=== PATIENT | female | born 1995 | race Asian ===

== ENCOUNTER 2019-11-10 11:27 | Observation (INO) | payer OTHER ==
[~2019-11-10] VITALS: Ht 152.4 cm; Wt 57.3 kg
[~2019-11-10 11:27] MED LIST: IBUP-1222 PO; NITR100C56 PO; OXYC-302 PO; POTA10TA11 PO; PREN1TAB60 PO
[2019-11-10] MEDS ORDERED: ASPI-515 PO (11:48)
[2019-11-10 11:53] VITALS: BP 144/111
[2019-11-10 12:13] LABS: MICROSCOPIC AUTO
[2019-11-10 12:21] LABS: CREATININE,URINE RANDOM 32.8 mg/dL
[2019-11-10 12:27] LABS: BASOPHILS # (AUTO) 0.04 x10^3/uL (0-0.1); BASOPHILS % (AUTO) 0 % (0-1); EOSINOPHILS # (AUTO) 0.18 x10^3/uL (0-0.4); EOSINOPHILS % (AUTO) 2 % (1-7); LYMPHOCYTES # (AUTO) 1.91 x10^3/uL (1-3.4); LYMPHOCYTES % (AUTO) 18 % (22-44); MD NO; MEAN CORPUSCULAR HEMOGLOBIN 30.7 pg (27.0-34.8); MEAN CORPUSCULAR HGB CONC 32.6 g/dL (32.4-35.8); MEAN CORPUSCULAR VOLUME 94.1 fL (80-100); MONOCYTES # (AUTO) 0.88 x10^3/uL (0.2-0.8); MONOCYTES % (AUTO) 8 % (2-9); NEUTROPHILS # (AUTO) 7.89 x10^3/uL (1.8-6.8); NEUTROPHILS % (AUTO) 72 % (42-75); PLATELET COUNT 224 x10^3/uL (130-400); RED BLOOD COUNT 4.32 x10^6/uL (3.82-5.3); RED CELL DISTRIBUTION WIDTH 14.5 % (9.6-15.2)
[2019-11-10 12:37] LABS: ALANINE AMINOTRANSFERASE 16 U/L (12-78); ALBUMIN 2.6 g/dL (3.4-5.0); ANION GAP 9 mmol/L (5-15); CALCIUM 8.8 mg/dL (8.5-10.1); CHLORIDE 110 mmol/L (98-107)
[2019-11-10 12:40] LABS: ALKALINE PHOSPHATASE 124 U/L (45-117); BILIRUBIN,TOTAL 0.2 mg/dL (0.2-1.0); TOTAL PROTEIN 6.8 g/dL (6.4-8.2)
[2019-11-10] MEDS ORDERED: BETAMETHASONE 6 MG/ML, 5ML IM ONE (13:06)
[2019-11-10] MEDS ORDERED: LABETALOL 100 MG TABLET ONE (13:06)
[2019-11-10] MEDS: LABETALOL 100 MG TABLET PO SCH (13:11)
[2019-11-10] MEDS: BETAMETHASONE 6 MG/ML, 5ML IM SCH (13:13)
[2019-11-11] MEDS ORDERED: LABETALOL 100 MG TABLET ONE (08:58)
[2019-11-11] MEDS: LABETALOL 100 MG TABLET PO SCH (09:01)
[2019-11-11] MEDS: BETAMETHASONE 6 MG/ML, 5ML IM SCH (12:58)
[2019-11-11] MEDS ORDERED: POTASSIUM CHLORIDE 20 MEQ TAB.ER.PRT PO ONE (13:00)
== END 2019-11-11 13:15 | disposition home or self-care (01) ==
LOC: LDOP 11:27 → INTOOBSV 12:55 → UNDOADMOB 12:55 → LDIP 12:55 → OBSVTOIN 12:55 → LDIP 13:44
PROVIDERS: ADMIT Obstetrics & Gynecology; ATTEND Obstetrics & Gynecology
DX: O13.3 Gestational [pregnancy-induced] hypertension without significant proteinuria, third trimester (principal); Z3A.34 34 weeks gestation of pregnancy; Z79.82 Long term (current) use of aspirin; Z79.899 Other long term (current) drug therapy; Z87.59 Personal history of other complications of pregnancy, childbirth and the puerperium
CPT/HCPCS: 36415; 59025; 80053; 81001; 82570; 84156; 84550; 85025; 87081; 87086; 96372; G0378; J0702

== ENCOUNTER 2019-11-16 15:57 | Inpatient (IN) | payer OTHER ==
[~2019-11-16] VITALS: Ht 152.4 cm; Wt 57.2 kg
[~2019-11-16 15:57] MED LIST changes: +ASPI-515 PO; +METHYLERGONOVINE 0.2 MG/ML IM ONE
[2019-11-16] MEDS ORDERED: SODIUM CITRATE/CITRIC ACID 30 ML UDC PO ONE (16:00)
[2019-11-16] MEDS ORDERED: LACTATED RINGERS 1,000 ML IVBOLUS ONE (16:00)
[2019-11-16] MEDS ORDERED: LACTATED RINGERS 1,000 ML IV SCH ×2 (16:00→22:17)
[2019-11-16] MEDS ORDERED: METOCLOPRAMIDE 5 MG/ML, 2ML IV ONE (16:00)
[2019-11-16] MEDS ORDERED: SODIUM CITRATE/CITRIC ACID 30 ML UDC ONE (16:06)
[2019-11-16] MEDS ORDERED: METOCLOPRAMIDE 5 MG/ML, 2ML ONE (16:06)
[2019-11-16] MEDS ORDERED: OXYTOCIN 30U/ 0.9% NaCL 500ML 500 ML ONE (16:06)
[2019-11-16] MEDS ORDERED: NEWBORN KIT ONE (16:06)
[2019-11-16 16:35] LABS: BASOPHILS # (AUTO) 0.04 x10^3/uL (0-0.1); BASOPHILS % (AUTO) 0 % (0-1); EOSINOPHILS # (AUTO) 0.19 x10^3/uL (0-0.4); EOSINOPHILS % (AUTO) 2 % (1-7); LYMPHOCYTES % (AUTO) 16 % (22-44); MD NO; MEAN CORPUSCULAR HEMOGLOBIN 30.7 pg (27.0-34.8); MEAN CORPUSCULAR HGB CONC 32.7 g/dL (32.4-35.8); MEAN PLATELET VOLUME 8.4 fL (7.4-10.4); MONOCYTES # (AUTO) 0.98 x10^3/uL (0.2-0.8); MONOCYTES % (AUTO) 8 % (2-9); NEUTROPHILS # (AUTO) 9.46 x10^3/uL (1.8-6.8); NEUTROPHILS % (AUTO) 74 % (42-75); PLATELET COUNT 234 x10^3/uL (130-400); RED BLOOD COUNT 4.43 x10^6/uL (3.82-5.3); RED CELL DISTRIBUTION WIDTH 14.5 % (9.6-15.2)
[2019-11-16 16:37] VITALS: BP 134/94
[2019-11-16 16:37] LABS: MICROSCOPIC AUTO
[2019-11-16 16:38] LABS: ALANINE AMINOTRANSFERASE 19 U/L (12-78); ALBUMIN 2.4 g/dL (3.4-5.0); ANION GAP 10 mmol/L (5-15); CALCIUM 8.1 mg/dL (8.5-10.1); CHLORIDE 110 mmol/L (98-107); CREATININE 0.59 mg/dL (0.55-1.02)
[2019-11-16 16:40] LABS: ALKALINE PHOSPHATASE 125 U/L (45-117); BILIRUBIN,TOTAL 0.2 mg/dL (0.2-1.0); TOTAL PROTEIN 6.6 g/dL (6.4-8.2)
[2019-11-16 16:47] LABS: CREATININE,URINE RANDOM 40.8 mg/dL
[2019-11-16] MEDS: POTASSIUM CHLORIDE 40 MEQ in SODIUM CHLORIDE 0.45% 500 ML IV SCH ×2 (18:12→22:10)
[2019-11-16] MEDS ORDERED: CEFAZOLIN 1,000 MG ONE (19:43)
[2019-11-16] MEDS ORDERED: ONDANSETRON 2MG/ML, 2ML ONE (19:43)
[2019-11-16] MEDS ORDERED: OXYTOCIN 10 UNITS/ML, 1ML ONE (19:43)
[2019-11-16] MEDS ORDERED: FENTANYL PF 100 MCG/2ML ONE (19:44)
[2019-11-16] MEDS ORDERED: HYDROmorphone 2 MG/ML, 1ML ONE (19:44)
[2019-11-16] MEDS ORDERED: SODIUM CHLORIDE 0.9% PF 10ML ONE ×2 (19:45)
[2019-11-16] MEDS ORDERED: KETOROLAC 30 MG/1 ML ONE (19:50)
[2019-11-16] MEDS ORDERED: MISOPROSTOL 200 MCG TABLET ONE (20:41)
[2019-11-16] MEDS ORDERED: DIPHENHYDRAMINE 50 MG/ML, 1ML ONE (21:13)
[2019-11-16] MEDS ORDERED: TRANEXAMIC ACID 100 MG/ML, 10ML ONE (21:22)
[2019-11-16] MEDS ORDERED: ALBUTEROL SULFATE 2.5 MG/3 ML ONE (21:23)
[2019-11-16 21:58] LABS: ALANINE AMINOTRANSFERASE 15 U/L (12-78); ALBUMIN 2.3 g/dL (3.4-5.0); ANION GAP 11 mmol/L (5-15); CALCIUM 8.3 mg/dL (8.5-10.1); CHLORIDE 113 mmol/L (98-107); CREATININE 0.59 mg/dL (0.55-1.02)
[2019-11-16 21:59] LABS: INTERNATIONAL NORMALIZED RATIO 0.92 (0.93-1.1); PROTHROMBIN TIME 9.7 Seconds (9.6-11.5)
[2019-11-16 22:01] LABS: ALKALINE PHOSPHATASE 118 U/L (45-117); BILIRUBIN,TOTAL 0.3 mg/dL (0.2-1.0); TOTAL PROTEIN 6.4 g/dL (6.4-8.2)
[2019-11-16 22:17] LABS: BASOPHILS # (AUTO) 0.05 x10^3/uL (0-0.1); BASOPHILS % (AUTO) 0 % (0-1); EOSINOPHILS # (AUTO) 0.15 x10^3/uL (0-0.4); EOSINOPHILS % (AUTO) 1 % (1-7); LYMPHOCYTES # (AUTO) 2.83 x10^3/uL (1-3.4); LYMPHOCYTES % (AUTO) 20 % (22-44); MD SCAN; MEAN CORPUSCULAR HEMOGLOBIN 31.1 pg (27.0-34.8); MEAN CORPUSCULAR HGB CONC 33.5 g/dL (32.4-35.8); MEAN PLATELET VOLUME 8.2 fL (7.4-10.4); MONOCYTES # (AUTO) 0.89 x10^3/uL (0.2-0.8); MONOCYTES % (AUTO) 6 % (2-9); NEUTROPHILS % (AUTO) 72 % (42-75); PLATELET COUNT 185 x10^3/uL (130-400); RED BLOOD COUNT 4.23 x10^6/uL (3.82-5.3); RED CELL DISTRIBUTION WIDTH 14.7 % (9.6-15.2)
[2019-11-16] MEDS ORDERED: OXYTOCIN 30U/ 0.9% NaCL 500ML 500 ML IV SCH (22:17)
[2019-11-16 22:18] VITALS: BP 136/72
[2019-11-16] MEDS ORDERED: morphine SULFATE 10 MG/ML, 1ML IVPush PRN (22:30)
[2019-11-16] MEDS ORDERED: MORPHINE SULFATE 4 MG/ML, 1ML IVPush PRN (22:30)
[2019-11-16] MEDS ORDERED: METHYLERGONOVINE 0.2 MG/ML IM PRN (22:30)
[2019-11-16] MEDS ORDERED: DIPHENHYDRAMINE 50 MG/ML, 1ML IVPush ONE (22:30)
[2019-11-16] MEDS ORDERED: CARBOPROST TROMETHAMINE 250 MCG/ML, 1ML IM PRN (22:30)
[2019-11-16] MEDS ORDERED: TRANEXAMIC ACID 100 MG/ML, 10ML IV ONE (22:30)
[2019-11-16] MEDS ORDERED: ONDANSETRON 2MG/ML, 2ML IV PRN (22:30)
[2019-11-16] MEDS ORDERED: SIMETHICONE 80 MG CHEW TAB PO PRN (22:30)
[2019-11-16] MEDS ORDERED: MISOPROSTOL 200 MCG TABLET PR PRN (22:30)
[2019-11-16 22:35] VITALS: BP 151/100
[2019-11-16] MEDS ORDERED: OXYcodone 5 MG/5 ML ORAL.SOL UDC PO PRN (23:00)
[2019-11-16 23:18] VITALS: BP 138/95
[2019-11-17] VITALS (12 sets, daily range): BP systolic 105–170; BP diastolic 64–95
[2019-11-17] MEDS ORDERED: OXYcodone 5 MG/5 ML ORAL.SOL UDC ONE (00:11)
[2019-11-17] MEDS ORDERED: PROPOFOL 10 MG/ML, 20ML ONE (00:28)
[2019-11-17] MEDS ORDERED: ONDANSETRON 2MG/ML, 2ML ONE (00:28)
[2019-11-17] MEDS ORDERED: FENTANYL PF 250 MCG/5ML ONE (00:28)
[2019-11-17] MEDS ORDERED: ROCURONIUM 10MG/ML,5ML ONE (00:28)
[2019-11-17] MEDS ORDERED: PHENYLEPHRINE 10 MG/ML ONE (00:29)
[2019-11-17] MEDS ORDERED: SUGAMMADEX 200 MG/2 ML IVPush ONE (01:38)
[2019-11-17 01:53] LABS: MEAN CORPUSCULAR HEMOGLOBIN 30.4 pg (27.0-34.8); MEAN CORPUSCULAR HGB CONC 33.3 g/dL (32.4-35.8)
[2019-11-17] MEDS ORDERED: FENTANYL PF 100 MCG/2ML ONE (01:56)
[2019-11-17 02:05] LABS: INTERNATIONAL NORMALIZED RATIO 1.52 (0.93-1.1); PROTHROMBIN TIME 16.2 Seconds (9.6-11.5)
[2019-11-17 02:27] LABS: BASOPHILS # (AUTO) 0.04 x10^3/uL (0-0.1); BASOPHILS % (AUTO) 0 % (0-1); EOSINOPHILS # (AUTO) 0.09 x10^3/uL (0-0.4); EOSINOPHILS % (AUTO) 1 % (1-7); LYMPHOCYTES # (AUTO) 1.39 x10^3/uL (1-3.4); LYMPHOCYTES % (AUTO) 12 % (22-44); MD SCAN; MEAN PLATELET VOLUME 6.8 fL (7.4-10.4); MONOCYTES # (AUTO) 1.16 x10^3/uL (0.2-0.8); MONOCYTES % (AUTO) 10 % (2-9); NEUTROPHILS # (AUTO) 9.33 x10^3/uL (1.8-6.8); NEUTROPHILS % (AUTO) 78 % (42-75); PLATELET COUNT 65 x10^3/uL (130-400)
[2019-11-17] MEDS ORDERED: TRANEXAMIC ACID 1,000 MG in SODIUM CHLORIDE 0.9% 100 ML IV ONE (02:30)
[2019-11-17] MEDS ORDERED: LABETALOL 5MG/ML, 20ML ONE (02:39)
[2019-11-17] MEDS ORDERED: LABETALOL 5MG/ML, 20ML IVPush PRN ×3 (03:00)
[2019-11-17] MEDS ORDERED: hydrALAzine 20 MG/ML, 1ML IVPush ONE (03:00)
[2019-11-17] MEDS: CEFAZOLIN PMX 1GM/50ML 50 ML IV SCH ×3 (03:35→20:30)
[2019-11-17] MEDS ORDERED: IBUPROFEN 600 MG TABLET ONE (04:36)
[2019-11-17] MEDS ORDERED: OXYcodone/APAP 5/325MG TABLET ONE ×4 (04:36→16:59)
[2019-11-17] MEDS: OXYcodone/APAP 5/325MG TABLET PO PRN ×4 (04:46→17:01)
[2019-11-17] MEDS: IBUPROFEN 600 MG TABLET PO PRN (04:47)
[2019-11-17 04:53] LABS: MEAN CORPUSCULAR HEMOGLOBIN 30.6 pg (27.0-34.8); MEAN CORPUSCULAR HGB CONC 33.1 g/dL (32.4-35.8); MEAN PLATELET VOLUME 7.2 fL (7.4-10.4); PLATELET COUNT 61 x10^3/uL (130-400); RED BLOOD COUNT 2.46 x10^6/uL (3.82-5.3); RED CELL DISTRIBUTION WIDTH 15.2 % (9.6-15.2)
[2019-11-17 05:01] LABS: INTERNATIONAL NORMALIZED RATIO 1.12 (0.93-1.1); PROTHROMBIN TIME 11.9 Seconds (9.6-11.5)
[2019-11-17] MEDS: LACTATED RINGERS 1,000 ML IV SCH ×2 (05:36→08:23)
[2019-11-17 05:56] LABS: BASOPHILS # (AUTO) 0.02 x10^3/uL (0-0.1); BASOPHILS % (AUTO) 0 % (0-1); EOSINOPHILS # (AUTO) 0.04 x10^3/uL (0-0.4); EOSINOPHILS % (AUTO) 0 % (1-7); LYMPHOCYTES # (AUTO) 1.87 x10^3/uL (1-3.4); LYMPHOCYTES % (AUTO) 14 % (22-44); MD SCAN; MONOCYTES # (AUTO) 0.89 x10^3/uL (0.2-0.8); MONOCYTES % (AUTO) 7 % (2-9); NEUTROPHILS # (AUTO) 10.86 x10^3/uL (1.8-6.8); NEUTROPHILS % (AUTO) 79 % (42-75)
[2019-11-17] MEDS ORDERED: DOCUSATE 100 MG CAPSULE ONE (09:03)
[2019-11-17] MEDS ORDERED: PRENATAL VIT/IRON/FA 1 EACH TABLET ONE (09:03)
[2019-11-17] MEDS: PRENATAL VIT/IRON/FA 1 EACH TABLET PO SCH (09:11)
[2019-11-17 11:15] LABS: INTERNATIONAL NORMALIZED RATIO 0.99 (0.93-1.1); PROTHROMBIN TIME 10.5 Seconds (9.6-11.5)
[2019-11-17 11:33] LABS: MEAN CORPUSCULAR HEMOGLOBIN 30.7 pg (27.0-34.8); MEAN CORPUSCULAR HGB CONC 33.4 g/dL (32.4-35.8); RED BLOOD COUNT 2.35 x10^6/uL (3.82-5.3); RED CELL DISTRIBUTION WIDTH 14.4 % (9.6-15.2)
[2019-11-17 11:40] LABS: MD YES; PLATELET COUNT 62 x10^3/uL (130-400)
[2019-11-17 11:41] LABS: BAND#(MANUAL) 2.18 x10^3/uL; BANDS%(MANUAL) 14 % (0-7); LYMPH#(MANUAL) 2.34 x10^3/uL (1-3.4); LYMPHS% (MANUAL) 15 % (22-44); METAMYELOCYTES# (MANUAL) 0.16 x10^3/uL (0-0); METAMYELOCYTES% (MANUAL) 1 % (0-1); MONOS#(MANUAL) 0.78 x10^3/uL (0.3-2.7); MONOS% (MANUAL) 5 % (2-9); SEG#(MANUAL) 10.14 x10^3/uL (1.8-6.8); SEGS% (MANUAL) 65 % (42-75)
[2019-11-17 11:42] LABS: <PLATELET ESTIMATE> DECREASED; <PLT MORPHOLOGY> NORMAL PLT MORPH; POLYCHROMASIA 1+
[2019-11-17 16:14] LABS: ALANINE AMINOTRANSFERASE 15 U/L (12-78); ALBUMIN 1.4 g/dL (3.4-5.0); ANION GAP 9 mmol/L (5-15); CALCIUM 6.9 mg/dL (8.5-10.1); CHLORIDE 108 mmol/L (98-107); CREATININE 0.73 mg/dL (0.55-1.02)
[2019-11-17 16:15] LABS: MEAN CORPUSCULAR HEMOGLOBIN 30.3 pg (27.0-34.8); MEAN PLATELET VOLUME 8.1 fL (7.4-10.4); NEUTROPHILS % (AUTO) 77 % (42-75); PLATELET COUNT 81 x10^3/uL (130-400); RED BLOOD COUNT 2.21 x10^6/uL (3.82-5.3); RED CELL DISTRIBUTION WIDTH 14.9 % (9.6-15.2)
[2019-11-17 16:16] LABS: ALKALINE PHOSPHATASE 48 U/L (45-117); BILIRUBIN,TOTAL 0.5 mg/dL (0.2-1.0); TOTAL PROTEIN 3.8 g/dL (6.4-8.2)
[2019-11-17 17:33] LABS: BASOPHILS # (AUTO) 0.02 x10^3/uL (0-0.1); BASOPHILS % (AUTO) 0 % (0-1); EOSINOPHILS # (AUTO) 0.13 x10^3/uL (0-0.4); EOSINOPHILS % (AUTO) 1 % (1-7); LYMPHOCYTES # (AUTO) 2.21 x10^3/uL (1-3.4); LYMPHOCYTES % (AUTO) 15 % (22-44); MD SCAN; MONOCYTES # (AUTO) 1.16 x10^3/uL (0.2-0.8); MONOCYTES % (AUTO) 8 % (2-9); NEUTROPHILS # (AUTO) 11.67 x10^3/uL (1.8-6.8)
[2019-11-17 18:07] LABS: MICROSCOPIC INDICATED
[2019-11-17] MEDS ORDERED: GENTAMICIN PER PHARMACY MC PRN (18:30)
[2019-11-17] MEDS ORDERED: OMNIPAQUE 350 MG/ML, 100ML BOTTLE ONE (18:33)
[2019-11-17] MEDS ORDERED: CLINDAMYCIN PMX 900MG/50ML 50 ML ONE (18:46)
[2019-11-17] MEDS ORDERED: PHARMACOKINETIC MONITORING MC PRN (19:00)
[2019-11-17] MEDS: CLINDAMYCIN PMX 900MG/50ML 50 ML IV SCH (19:00)
[2019-11-17] MEDS ORDERED: PHARMACOKINETIC CONSULTATION MC ONE (19:00)
[2019-11-17] MEDS ORDERED: GENTAMICIN 120 MG in SODIUM CHLORIDE 0.9% 50 ML IV ONE (19:30)
[2019-11-17] MEDS: D5%-LACTATED RINGERS 1,000 ML IV SCH (20:15)
[2019-11-17 21:08] LABS: MEAN CORPUSCULAR HEMOGLOBIN 31.1 pg (27.0-34.8); MEAN CORPUSCULAR HGB CONC 34.7 g/dL (32.4-35.8); MEAN PLATELET VOLUME 8.3 fL (7.4-10.4); PLATELET COUNT 69 x10^3/uL (130-400); RED BLOOD COUNT 2.12 x10^6/uL (3.82-5.3); RED CELL DISTRIBUTION WIDTH 14.6 % (9.6-15.2)
[2019-11-17 21:33] LABS: BASOPHILS # (AUTO) 0.03 x10^3/uL (0-0.1); BASOPHILS % (AUTO) 0 % (0-1); EOSINOPHILS # (AUTO) 0.18 x10^3/uL (0-0.4); EOSINOPHILS % (AUTO) 1 % (1-7); LYMPHOCYTES # (AUTO) 2.21 x10^3/uL (1-3.4); LYMPHOCYTES % (AUTO) 17 % (22-44); MD SCAN; MONOCYTES # (AUTO) 1.09 x10^3/uL (0.2-0.8); MONOCYTES % (AUTO) 8 % (2-9); NEUTROPHILS # (AUTO) 9.59 x10^3/uL (1.8-6.8); NEUTROPHILS % (AUTO) 73 % (42-75)
[2019-11-18] MEDS ORDERED: MORPHINE SULFATE 4 MG/ML, 1ML ONE (00:55)
[2019-11-18] MEDS ORDERED: CLINDAMYCIN PMX 900MG/50ML 50 ML ONE ×3 (02:56→18:44)
[2019-11-18] MEDS: CLINDAMYCIN PMX 900MG/50ML 50 ML IV SCH ×3 (03:00→18:46)
[2019-11-18] MEDS: SODIUM CHLORIDE 0.9% IV SCH ×3 (03:35→20:30)
[2019-11-18] MEDS: GENTAMICIN IV SCH ×3 (03:35→20:30)
[2019-11-18] MEDS: CEFAZOLIN PMX 1GM/50ML 50 ML IV SCH ×3 (04:10→21:10)
[2019-11-18 05:07] LABS: MEAN CORPUSCULAR HEMOGLOBIN 30.1 pg (27.0-34.8); MEAN CORPUSCULAR HGB CONC 33.8 g/dL (32.4-35.8); MEAN PLATELET VOLUME 7.6 fL (7.4-10.4); PLATELET COUNT 66 x10^3/uL (130-400); RED BLOOD COUNT 3.02 x10^6/uL (3.82-5.3); RED CELL DISTRIBUTION WIDTH 13.8 % (9.6-15.2)
[2019-11-18 05:12] LABS: ALBUMIN 1.4 g/dL (3.4-5.0); ANION GAP 7 mmol/L (5-15); CALCIUM 6.8 mg/dL (8.5-10.1); CHLORIDE 110 mmol/L (98-107)
[2019-11-18 05:17] LABS: ALANINE AMINOTRANSFERASE 14 U/L (12-78); ALKALINE PHOSPHATASE 47 U/L (45-117); BILIRUBIN,TOTAL 0.7 mg/dL (0.2-1.0); CREATININE 0.65 mg/dL (0.55-1.02); TOTAL PROTEIN 3.8 g/dL (6.4-8.2)
[2019-11-18 05:42] LABS: BASOPHILS # (AUTO) 0.01 x10^3/uL (0-0.1); BASOPHILS % (AUTO) 0 % (0-1); EOSINOPHILS # (AUTO) 0.23 x10^3/uL (0-0.4); EOSINOPHILS % (AUTO) 2 % (1-7); LYMPHOCYTES # (AUTO) 1.98 x10^3/uL (1-3.4); LYMPHOCYTES % (AUTO) 15 % (22-44); MD SCAN; MONOCYTES # (AUTO) 1.46 x10^3/uL (0.2-0.8); MONOCYTES % (AUTO) 11 % (2-9); NEUTROPHILS # (AUTO) 9.58 x10^3/uL (1.8-6.8); NEUTROPHILS % (AUTO) 72 % (42-75)
[2019-11-18] MEDS ORDERED: POTASSIUM CHLORIDE IV ONE (06:00)
[2019-11-18] MEDS ORDERED: DEXTROSE 5% IV ONE (06:00)
[2019-11-18] MEDS ORDERED: MAGNESIUM SULFATE/D5W 100 ML IV ONE (07:00)
[2019-11-18] MEDS ORDERED: OXYcodone/APAP 5/325MG TABLET ONE ×2 (08:05→18:44)
[2019-11-18] MEDS: OXYcodone/APAP 5/325MG TABLET PO PRN ×2 (08:09→18:46)
[2019-11-18 08:15] VITALS: BP 118/82
[2019-11-18] MEDS: PRENATAL VIT/IRON/FA 1 EACH TABLET PO SCH (09:00)
[2019-11-18] MEDS ORDERED: morphine SULFATE 10 MG/ML, 1ML ONE (11:45)
[2019-11-18 14:07] VITALS: BP 127/84
[2019-11-18] MEDS ORDERED: D5%-0.45NACL+KCL 30MEQ 1,000 ML IV SCH (14:30)
[2019-11-18] MEDS: D5%-LACTATED RINGERS 1,000 ML IV SCH (15:10)
[2019-11-18 19:15] VITALS: BP 130/89
[2019-11-18] MEDS: DOCUSATE 100 MG CAPSULE PO PRN (20:30)
[2019-11-18] MEDS: IBUPROFEN 600 MG TABLET PO PRN (20:33)
[2019-11-18] MEDS: POTASSIUM CHLORIDE 20 MEQ PACKET PO SCH (21:30)
[2019-11-19] MEDS ORDERED: OXYcodone/APAP 5/325MG TABLET ONE (00:03)
[2019-11-19 00:09] VITALS: BP 123/86
[2019-11-19] MEDS ORDERED: IBUPROFEN 600 MG TABLET ONE (02:46)
[2019-11-19] MEDS ORDERED: CLINDAMYCIN PMX 900MG/50ML 50 ML ONE (02:48)
[2019-11-19] MEDS: IBUPROFEN 600 MG TABLET PO PRN ×3 (02:51→14:40)
[2019-11-19] MEDS: CLINDAMYCIN PMX 900MG/50ML 50 ML IV SCH ×3 (02:51→19:33)
[2019-11-19 03:03] VITALS: BP 122/79
[2019-11-19] MEDS: SODIUM CHLORIDE 0.9% IV SCH ×3 (03:46→21:15)
[2019-11-19] MEDS: GENTAMICIN IV SCH ×3 (03:46→21:15)
[2019-11-19] MEDS: CEFAZOLIN PMX 1GM/50ML 50 ML IV SCH ×3 (04:25→22:34)
[2019-11-19] MEDS: SODIUM CHLORIDE FLUSH 3ML SYRINGE IVF SCH ×2 (05:14→21:15)
[2019-11-19 06:06] LABS: MEAN CORPUSCULAR HEMOGLOBIN 30.5 pg (27.0-34.8); MEAN CORPUSCULAR HGB CONC 34.1 g/dL (32.4-35.8); MEAN PLATELET VOLUME 7.8 fL (7.4-10.4); PLATELET COUNT 88 x10^3/uL (130-400); RED CELL DISTRIBUTION WIDTH 15.2 % (9.6-15.2)
[2019-11-19 06:08] LABS: ALBUMIN 1.6 g/dL (3.4-5.0); ANION GAP 8 mmol/L (5-15); CALCIUM 7.8 mg/dL (8.5-10.1); CHLORIDE 111 mmol/L (98-107)
[2019-11-19 06:12] LABS: ALANINE AMINOTRANSFERASE 11 U/L (12-78); ALKALINE PHOSPHATASE 53 U/L (45-117); BILIRUBIN,TOTAL 0.5 mg/dL (0.2-1.0); CREATININE 0.43 mg/dL (0.55-1.02); TOTAL PROTEIN 4.8 g/dL (6.4-8.2)
[2019-11-19 06:38] LABS: BASOPHILS # (AUTO) 0.05 x10^3/uL (0-0.1); BASOPHILS % (AUTO) 0 % (0-1); EOSINOPHILS # (AUTO) 0.37 x10^3/uL (0-0.4); EOSINOPHILS % (AUTO) 2 % (1-7); LYMPHOCYTES # (AUTO) 2.01 x10^3/uL (1-3.4); LYMPHOCYTES % (AUTO) 13 % (22-44); MD SCAN; MONOCYTES # (AUTO) 1.77 x10^3/uL (0.2-0.8); MONOCYTES % (AUTO) 11 % (2-9); NEUTROPHILS # (AUTO) 11.71 x10^3/uL (1.8-6.8); NEUTROPHILS % (AUTO) 74 % (42-75)
[2019-11-19 08:30] VITALS: BP 123/78
[2019-11-19] MEDS: PRENATAL VIT/IRON/FA 1 EACH TABLET PO SCH (10:14)
[2019-11-19] MEDS: DOCUSATE 100 MG CAPSULE PO PRN (10:14)
[2019-11-19 13:13] VITALS: BP 123/84
[2019-11-19] MEDS: FERROUS GLUCONATE 324 MG TABLET PO SCH (17:03)
[2019-11-19] MEDS: POTASSIUM CHLORIDE 20 MEQ PACKET PO SCH (17:03)
[2019-11-19 17:06] VITALS: BP 135/89
[2019-11-19 19:40] VITALS: BP 136/91
[2019-11-20 00:11] VITALS: BP 134/86
[2019-11-20] MEDS: CLINDAMYCIN PMX 900MG/50ML 50 ML IV SCH ×2 (03:36→11:49)
[2019-11-20 03:39] VITALS: BP 128/88
[2019-11-20] MEDS: SODIUM CHLORIDE 0.9% IV SCH ×2 (04:40→13:02)
[2019-11-20] MEDS: GENTAMICIN IV SCH ×2 (04:40→13:02)
[2019-11-20] MEDS: CEFAZOLIN PMX 1GM/50ML 50 ML IV SCH ×2 (05:23→13:30)
[2019-11-20 05:58] LABS: MEAN CORPUSCULAR HEMOGLOBIN 29.8 pg (27.0-34.8); MEAN CORPUSCULAR HGB CONC 32.7 g/dL (32.4-35.8); MEAN PLATELET VOLUME 7.8 fL (7.4-10.4); PLATELET COUNT 148 x10^3/uL (130-400); RED BLOOD COUNT 2.89 x10^6/uL (3.82-5.3); RED CELL DISTRIBUTION WIDTH 14.6 % (9.6-15.2)
[2019-11-20 07:03] LABS: BASOPHILS # (AUTO) 0.02 x10^3/uL (0-0.1); BASOPHILS % (AUTO) 0 % (0-1); EOSINOPHILS # (AUTO) 0.39 x10^3/uL (0-0.4); EOSINOPHILS % (AUTO) 3 % (1-7); LYMPHOCYTES % (AUTO) 14 % (22-44); MD SCAN; MONOCYTES # (AUTO) 1.06 x10^3/uL (0.2-0.8); MONOCYTES % (AUTO) 8 % (2-9); NEUTROPHILS # (AUTO) 10.43 x10^3/uL (1.8-6.8); NEUTROPHILS % (AUTO) 75 % (42-75)
[2019-11-20] MEDS ORDERED: POTASSIUM CHLORIDE 20 MEQ PACKET PO SCH (07:30)
[2019-11-20] MEDS: IBUPROFEN 600 MG TABLET PO PRN (07:34)
[2019-11-20] MEDS: PRENATAL VIT/IRON/FA 1 EACH TABLET PO SCH (07:34)
[2019-11-20] MEDS: DOCUSATE 100 MG CAPSULE PO PRN (07:34)
[2019-11-20] MEDS: FERROUS GLUCONATE 324 MG TABLET PO SCH ×2 (07:34→13:02)
[2019-11-20] MEDS: OXYcodone/APAP 5/325MG TABLET PO PRN (07:35)
[2019-11-20 07:45] VITALS: BP 143/94
[2019-11-20] MEDS: SODIUM CHLORIDE FLUSH 3ML SYRINGE IVF SCH ×2 (09:00→12:30)
[2019-11-20 11:55] VITALS: BP 134/93
[2019-11-20] MEDS ORDERED: SENN-92 PO ×3 (13:21→13:23)
[2019-11-20] MEDS ORDERED: IBUP-1222 PO ×3 (13:21→13:23)
[2019-11-20] MEDS ORDERED: OXYC-302 PO ×3 (13:21→13:23)
[2019-11-20] MEDS ORDERED: FERR325T5 PO ×3 (13:21→13:23)
[2019-11-20] MEDS ORDERED: POTA20TA6 PO (13:24)
[2019-11-20] MEDS ORDERED: SIME80TA16 PO (13:26)
== END 2019-11-20 14:15 | disposition home or self-care (01) | DRG 784 ==
LOC: LDIP 15:57 → 2NE 11-17 04:28 → 2NW 11-19 05:41
PROVIDERS: ADMIT Obstetrics & Gynecology; ATTEND Obstetrics & Gynecology
PROC: 10D00Z1 Extraction of Products of Conception, Low, Open Approach (ICD-10-PCS; 2019-11-16)
PROC: 0W3R0ZZ Control Bleeding in Genitourinary Tract, Open Approach (ICD-10-PCS; 2019-11-16)
PROC: 0UB70ZZ Excision of Bilateral Fallopian Tubes, Open Approach (ICD-10-PCS; principal; 2019-11-17)
PROC: 0UT90ZZ Resection of Uterus, Open Approach (ICD-10-PCS; 2019-11-17)
PROC: 30233K1 Transfusion of Nonautologous Frozen Plasma into Peripheral Vein, Percutaneous Approach (ICD-10-PCS; 2019-11-17)
PROC: 30233N1 Transfusion of Nonautologous Red Blood Cells into Peripheral Vein, Percutaneous Approach (ICD-10-PCS; 2019-11-17)
PROC: 30233M1 Transfusion of Nonautologous Plasma Cryoprecipitate into Peripheral Vein, Percutaneous Approach (ICD-10-PCS; 2019-11-17)
DX: O34.211 Maternal care for low transverse scar from previous cesarean delivery (principal); O72.1 Other immediate postpartum hemorrhage; D62 Acute posthemorrhagic anemia; O14.14 Severe pre-eclampsia complicating childbirth; E87.6 Hypokalemia; O99.284 Endocrine, nutritional and metabolic diseases complicating childbirth; Z30.2 Encounter for sterilization; Z37.0 Single live birth; Z79.82 Long term (current) use of aspirin; O62.0 Primary inadequate contractions; Z3A.38 38 weeks gestation of pregnancy
CPT/HCPCS: 36415; 74018; J7121; 71045; 74174; 80053; 80170; 81001; 82570; 82803; 83605; 83735; 84132; 84156; 84550; 85025; 85384; 85610; 85730; 86592; 86850; 86900; 86923; 87040; 87086; 88302; 88307; G0378; J0690; J1170; J1885; J2405; J2704; J3010; J3480; Q9967; J1200; J1580; J2210; J2270; J2370; J2590; J2765; J7060; J7120; P9012; P9016; P9017

== ENCOUNTER 2020-08-28 17:19 | Emergency (ER) | payer BC, OTHER ==
[~2020-08-28] VITALS: Ht 152.4 cm; Wt 50.8 kg
[~2020-08-28 17:19] MED LIST changes: -ASPI-515 PO; +ASPI-963 PO; +FERR325T5 PO; -METHYLERGONOVINE 0.2 MG/ML IM ONE; -OXYC-302 PO; +OXYC1TAB14 PO; +POTA20TA6 PO; +SENN-92 PO; +SIME80TA16 PO
--- NOTE | 2020-08-28 18:24 | NUR ---
Report received from meal break RN and care assumed. 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
[2020-08-28] MEDS ORDERED: LABETALOL 5MG/ML, 20ML ONE (18:29)
[2020-08-28] MEDS ORDERED: SODIUM CHLORIDE FLUSH 10ML SYR IVF ONE (18:30)
[2020-08-28] MEDS ORDERED: LABETALOL 5MG/ML, 20ML IVPush ONE (18:30)
[2020-08-28 18:35] LABS: BASOPHILS % (AUTO) 1 % (0-1); EOSINOPHILS % (AUTO) 2 % (1-7); LYMPHOCYTES % (AUTO) 23 % (22-44); MEAN CORPUSCULAR HEMOGLOBIN 30.2 pg (27.0-34.8); MEAN CORPUSCULAR HGB CONC 34.1 g/dL (32.4-35.8); MEAN PLATELET VOLUME 7.5 fL (7.4-10.4); MONOCYTES % (AUTO) 4 % (2-9); NEUTROPHILS % (AUTO) 70 % (42-75); PLATELET COUNT 262 x10^3/uL (130-400); RED BLOOD COUNT 5.13 x10^6/uL (3.82-5.3); RED CELL DISTRIBUTION WIDTH 13.1 % (9.6-15.2)
--- NOTE | 2020-08-28 18:35 | NUR ---
IV Labetalol given as ordered at this time with VS as documented.
[2020-08-28 18:37] LABS: MD NO
[2020-08-28] MEDS ORDERED: LORazepam 2 MG/ML, 1ML ONE (18:39)
[2020-08-28 18:40] LABS: ALANINE AMINOTRANSFERASE 21 U/L (12-78); ALBUMIN 4.3 g/dL (3.4-5.0); ANION GAP 5 mmol/L (5-15); CALCIUM 9.3 mg/dL (8.5-10.1); CHLORIDE 104 mmol/L (98-107); CREATININE 0.76 mg/dL (0.55-1.02)
--- NOTE | 2020-08-28 18:43 | NUR ---
IV Ativan given at this time for possible anxiety related issues per MD based on pt description during their exam.
[2020-08-28 18:44] LABS: ALKALINE PHOSPHATASE 70 U/L (45-117); BILIRUBIN,TOTAL 0.6 mg/dL (0.2-1.0); TOTAL PROTEIN 8.5 g/dL (6.4-8.2); TROPONIN I < 0.015 ng/mL (0.000-0.045)
[2020-08-28] MEDS ORDERED: LORazepam 2 MG/ML, 1ML IVPush ONE (19:00)
--- NOTE | 2020-08-28 19:15 | NUR ---
Pt states pain in chest has resolved since Ativan admin on reassessment with continued decreased BP from initial HTN. Still with mild HTN present.
--- NOTE | 2020-08-28 19:20 | NUR ---
La results reviewed. Noted slight elevation in WBC's. Chart marked for recheck by MD at this time.
--- NOTE | 2020-08-28 19:42 | NUR ---
MD at bedside to discuss finding and plan of care with pt. Pt needs PO KCl and then D/C to home per MD.
[2020-08-28] MEDS ORDERED: POTASSIUM CHLORIDE 20 MEQ TAB.ER.PRT ONE (19:43)
[2020-08-28 19:48] VITALS: BP 143/97
--- NOTE | 2020-08-28 19:48 | NUR ---
PO potassium given at this time without issue. IV d/c'd and pt getting dressed for d/c home.
[2020-08-28] MEDS ORDERED: POTASSIUM CHLORIDE 20 MEQ TAB.ER.PRT PO ONE (20:00)
== END 2020-08-28 20:02 | disposition home or self-care (01) ==
LOC: ED 18:52
DX: R07.89 Other chest pain (principal); I10 Essential (primary) hypertension; R51.9 Headache, unspecified; R94.31 Abnormal electrocardiogram [ECG] [EKG]
CPT/HCPCS: 36415; 80053; 84443; 84484; 85025; 93005; 96374; 96375; 99285; J2060